=== PATIENT | female | born 1975 | race Two or more races ===

== ENCOUNTER → 2017-07-18 | Emergency (ER) | payer OTHER ==
[~2017-07-18] VITALS: Ht 165.1 cm; Wt 56.7 kg
[~2017-07-18] MED LIST: ADVAIR 5001 DISK W/1 IH; DOXYCYCLINE HY100 MG PO; FLAGYL500MG PO; FLUCONAZOLE100 MG PO; MICRO-K8 MEQ PO; PROTEINEX1 TA1 PO; SYNTHROID50 MCG PO; ZANTAC150 M3 PO; ZYRTEC10 M3 PO
== END | disposition home or self-care (01) ==
LOC: ER 14:03
DX: K59.09 Other constipation (principal)